=== PATIENT | female | born 1980 | race Caucasian/White ===

== ENCOUNTER 2020-06-20 09:34 | Emergency (ER) | payer BC, SELFPAY ==
[2020-06-20 09:36] VITALS: BP 95/67; PULSE 81; RESP 18; TEMP 37; O2SAT 100; BMI 24.5
--- NOTE | 2020-06-20 09:46 | HMH.EDDENT ---
ED Disposition Clinical Impression: Pain, dental Disposition: Home, Self-Care Condition on Discharge: Good Instructions: DI for Dental Pain Prescriptions: Penicillin V Potassium 500 mg PO QID #20 tab Prescription Printed Referrals: Tony Wills [Primary Care Provider] - - Critical Care Critical Care Time: No Attestation: On 06/20/20, the high probability of a clinically significant, sudden or life threatening deterioration of the following system(s) required my full and direct attention, intervention and personal management. The time I documented below is in addition to time spent performing reported procedures but includes the following listed in this critical care notation. Medical Decision Making - Medical Records Medical records reviewed: Yes: I reviewed the patient's medical records. - Marcio Inquiry Pt receiving controlled substance: No Orders (Tests/Meds): ED MEDICATIONS Generic Name Dose Route Start Last Admin Trade Name Freq PRN Reason Stop Dose Admin Ketorolac Tromethamine 60 mg 06/20/20 09:46 Toradol 60mg/2ml Vial IM 06/20/20 09:47 ONCE ONE Discontinued Medications Generic Name Dose Route Start Last Admin Trade Name Freq PRN Reason Stop Dose Admin Lidocaine HCl 15 ml 06/20/20 09:45 Lidocaine 2% Viscous Solution 15ml Udc PO 06/20/20 09:46 ONCE ONE Medical Decision Narrative: Patient with healthy-appearing extractions, no signs of infection. Will place empirically on antibiotics and given a tooth ball here. Discharged home with advised to follow-up as soon as possible with her dentist. Dental HPI - General Stated complaint: dry socket or infected Time Seen by Provider: 06/20/20 09:46 Mode of Arrival: Ambulatory Source of Information: Patient Limitations: No Limitations - History of Present Illness HPI Narrative: 39-year-old female who presents to the emergency department for evaluation of pain around tooth #3. She had tooth extractions approximately 8 days ago and has developed increased pain along the top of her gumline around tooth #3 for the last several days. No intraoral drainage or fevers. She has been keeping the areas clean. She is concerned about dry socket. No bleeding from the wounds. - Related Data Previous Rx's Medication Instructions Recorded Penicillin V Potassium 500 mg PO QID #20 tab 06/20/20 Allergies Allergy/AdvReac Type Severity Reaction Status Date / Time lamotrigine [From LAMICTAL] Allergy Unknown Unverified 10/03/17 15:04 [facility] History - Hepatitis A Screen Attestation statement:: This patient has been screened for Hepatitis A risk factors. I have reviewed the patient's past medical history: Yes (noncontributory) ROS Obtained: Yes All systems reviewed & no additional complaints Physical Exam - General General appearance: alert, in no apparent distress - Head Head exam: atraumatic, normocephalic, normal inspection - ENT ENT exam: Present: normal exam, mucous membranes moist, other (Recent tooth extractions around tooth #3 and 30. Bed of the extraction appear healthy with no active discharge or bleeding. No surrounding erythema or swelling.) - Neck Neck exam: Present: normal inspection, trachea midline. Absent: lymphadenopathy - Respiratory Respiratory exam: Present: normal lung sounds bilaterally. Absent: respiratory distress - Cardiovascular Cardiovascular exam: Present: regular rate, normal rhythm - Neurological Exam Neurological exam: Present: alert, oriented X3 - Skin Skin exam: Present: warm, dry
[2020-06-20 10:59] VITALS: BP 118/88; PULSE 78; RESP 19; TEMP 37.1; O2SAT 98
== END 2020-06-20 11:00 | disposition home or self-care (01) ==
PROVIDERS: Emergency Provider Emergency Medicine; PCP Pediatrics
DX: K04.7 Periapical abscess without sinus (principal)
CPT/HCPCS: 96372; 99281

== ENCOUNTER → 2023-06-02 08:43 | Outpatient (CLI) | payer BC, SELFPAY ==
[2023-06-02 08:55] LABS: Coronavirus 19, PCR Not Detected (NotDetected); Influenza A, PCR Not Detected (NotDetected); Influenza B, PCR Not Detected (NotDetected)
[2023-06-02 09:25] LABS: Basophils % 0.7 % (0.1-2.0); Eosinophils # 0.1 K/mm3 (0.0-0.4); Eosinophils % 2.9 % (0.1-12.0); Hematocrit 38.7 % (37.0-47.0); Hemoglobin 12.5 g/dL (12.2-16.2); Lymphocytes # 1.2 K/mm3 (0.7-4.5); Lymphocytes % 25.7 % (10-50); Mean Corpuscular HGB Conc 32.2 g/dL (31.8-35.4); Mean Corpuscular Hemoglobin 29.5 pg (27.0-31.2); Mean Corpuscular Volume 91.6 fl (81-99); Mean Platelet Volume 7.2 fl (7.4-10.4); Monocytes # 0.2 K/mm3 (0.1-1.0); Monocytes % 3.6 % (1.7-9.3); Neutrophils # 3.2 K/mm3 (1.8-7.8); Neutrophils % 67.1 % (37.0-80.0); Platelet Count 368 K/mm3 (142-424); Red Blood Count 4.23 M/mm3 (4.20-5.40); Red Cell Distribution Width 12.5 % (11.5-17.5); White Blood Count 4.8 K/mm3 (4.8-10.8)
[2023-06-02 10:09] LABS: Monoscreen (Rapid) Negative (Negative)
[2023-06-02 10:28] LABS: Alanine Aminotransferase 26 U/L (12-78); Albumin Level 4.5 g/dl (3.5-5.0); Albumin/Globulin Ratio 1.7 (1.1-1.8); Alkaline Phosphatase 40 U/L (38-126); Anion Gap 15.2 mEq/L (5-15); Aspartate Amino Transferase 41 U/L (14-36); Bilirubin,Total 0.3 mg/dl (0.2-1.3); Blood Urea Nitrogen 13 mg/dl (7-17); Calcium 9.4 mg/dl (8.4-10.2); Carbon Dioxide 23 mmol/L (22.0-30.0); Chloride 108 mmol/L (98-107); Estimated Glomerular Filt Rate 79 ml/min (>60); GFR (African American) 96 ML/MIN (>60); Globulin 2.7 g/dL (1.3-3.2); Glucose 79 mg/dl (74-100); Potassium 4.2 mmoL/L (3.5-5.1); Sodium 142 mmol/L (136-145); Total Protein,Serum 7.2 g/dl (6.3-8.2)
[2023-06-03 10:12] LABS: Cytomegalovirus (CMV) Ab, IgG <0.60 U/mL (0.00-0.59); Cytomegalovirus (CMV) Ab, IgM <30.0 AU/mL (0.0-29.9)
[2023-06-03 11:33] LABS: Lyme Ab CIA Negative (Negative)
[2023-06-05 14:41] LABS: EBV Ab VCA, IgG >600.0 U/mL (0.0-17.9); EBV Ab VCA, IgM <36.0 U/mL (0.0-35.9); EBV Nuclear Antigen Ab, IgG >600.0 U/mL (0.0-17.9)
== END ==
PROVIDERS: PCP Nurse Practitioner; Visit Provider Nurse Practitioner
DX: J06.9 Acute upper respiratory infection, unspecified (principal); R59.0 Localized enlarged lymph nodes
CPT/HCPCS: 36415; 80053; 85025; 86060; 86318; 86618; 86644; 86645; 86664; 86665; 87636

== ENCOUNTER → 2023-06-20 13:03 | Outpatient (CLI) | payer BC, SELFPAY ==
--- NOTE | 2023-06-20 13:03 | CT_ITS ---
FINAL REPORT CLINICAL HISTORY: thoracic and posterior cervical lymphadenopath FINDINGS: Axial CT images of the chest were obtained with contrast. Coronal reformatted images were also obtained. This study was performed with techniques to keep radiation doses as low as reasonably achievable, (ALARA). Individualized dose reduction techniques using automated exposure control or adjustment of mA and/or KV according to the patient's size were employed. There is no evidence of mediastinal or hilar mass or adenopathy.No axillary mass or adenopathy is identified. On lung window images, no pulmonary mass or dominant pulmonary nodule is identified. No localized pulmonary inflammatory process is identified. Limited images of the upper abdomen shows the gallbladder is surgically absent. There is mild pleural thickening. There are multiple calcified granulomas in the right lung. IMPRESSION: No mass or localized inflammatory process. Reviewed, Interpreted and Dictated by Aniceto Royal III, MD Transcribed by Deandra Evans Authenticated and [facility]
--- NOTE | 2023-06-20 13:03 | CT_ITS ---
FINAL REPORT TECHNIQUE: Thin section axial CT images were obtained through the neck after intravenous contrast administration. Coronal and sagittal reformats were also obtained. This study was performed with techniques to keep radiation doses as low as reasonably achievable (ALARA). Individualized dose reduction techniques using automated exposure control or adjustment of mA and/or kV according to the patient''s size were employed. CLINICAL HISTORY: thoracic and posterior cervical lymphadenopathy FINDINGS: The nasopharynx, oropharynx, hypopharynx and larynx are unremarkable. There is no mass or adenopathy. The thyroid gland is unremarkable. The visualized sinuses are clear. There is no acute osseous abnormality. There is mild mucosal thickening of the left maxillary sinus. IMPRESSION: No neck mass or adenopathy. Reviewed, Interpreted and Dictated by Aniceto Royal III, MD Transcribed by Deandra Evans Authenticated and [facility]
== END ==
PROVIDERS: PCP Nurse Practitioner; Visit Provider Nurse Practitioner
DX: R59.0 Localized enlarged lymph nodes (principal)
CPT/HCPCS: 70491; 71260; Q9967

== ENCOUNTER → 2023-07-04 09:45 | Outpatient (CLI) | payer BC, SELFPAY ==
[2023-07-04 19:44] LABS: Basophils % 0.7 % (0.1-2.0); Eosinophils # 0.1 K/mm3 (0.0-0.4); Eosinophils % 2.1 % (0.1-12.0); Hematocrit 44.3 % (37.0-47.0); Hemoglobin 14.1 g/dL (12.2-16.2); Lymphocytes # 1.5 K/mm3 (0.7-4.5); Lymphocytes % 22.9 % (10-50); Mean Corpuscular HGB Conc 31.9 g/dL (31.8-35.4); Mean Corpuscular Hemoglobin 29.5 pg (27.0-31.2); Mean Corpuscular Volume 92.4 fl (81-99); Mean Platelet Volume 8.4 fl (7.4-10.4); Monocytes # 0.2 K/mm3 (0.1-1.0); Monocytes % 3.4 % (1.7-9.3); Neutrophils # 4.6 K/mm3 (1.8-7.8); Neutrophils % 70.9 % (37.0-80.0); Platelet Count 355 K/mm3 (142-424); Red Blood Count 4.79 M/mm3 (4.20-5.40); Red Cell Distribution Width 12.2 % (11.5-17.5); White Blood Count 6.5 K/mm3 (4.8-10.8)
[2023-07-04 20:12] LABS: 25-OH Vitamin D, Total 69.3 ng/mL (30-100)
[2023-07-04 20:27] LABS: Thyroid Stimulating Hormone 0.69 uIU/mL (0.465-4.68)
[2023-07-04 21:16] LABS: Vitamin B12 > 1000 pg/mL (239-931)
[2023-07-06 12:35] LABS: Anti-Centromere B Antibodies <0.2 AI (0.0-0.9); Anti-DNA (DS) Ab Qn <1 IU/mL (0-9); Anti-Jo-1 <0.2 AI (0.0-0.9); Anti-Smith Antibody <0.2 AI (0.0-0.9); Antichromatin Antibodies <0.2 AI (0.0-0.9); Antiscleroderma-70 Antibodies <0.2 AI (0.0-0.9); RNP Antibodies <0.2 AI (0.0-0.9); Sjogren's Anti-SS-A <0.2 AI (0.0-0.9); Sjogren's Anti-SS-B <0.2 AI (0.0-0.9)
== END ==
PROVIDERS: PCP Nurse Practitioner; Visit Provider Nurse Practitioner
DX: R07.9 Chest pain, unspecified (principal); R00.2 Palpitations; J06.9 Acute upper respiratory infection, unspecified; R53.83 Other fatigue; R79.89 Other specified abnormal findings of blood chemistry; Z79.899 Other long term (current) drug therapy
CPT/HCPCS: 82306; 82607; 84443; 85025; 86225; 86235; 93225

== ENCOUNTER → 2023-07-04 11:10 | Outpatient (CLI) | payer BC, SELFPAY | PROVIDERS: PCP Nurse Practitioner; Visit Provider Nurse Practitioner | DX: R53.83 Other fatigue (principal) ==

== ENCOUNTER → 2023-08-08 12:04 | Outpatient (CLI) | payer BC, SELFPAY ==
--- NOTE | 2023-08-08 12:16 | XR_ITS ---
FINAL REPORT CLINICAL HISTORY: hemoptysis FINDINGS: Two views of the chest were obtained. The heart size and pulmonary vascularity are within normal limits. The mediastinum is normal. No acute pulmonary abnormality is identified. There is no pneumothorax. The bony thorax is intact. IMPRESSION: No active cardiopulmonary disease. Reviewed, Interpreted and Dictated by Aniceto Royal III, MD Transcribed by Deandra Evans Authenticated and [facility]
[2023-08-08 12:29] LABS: Basophils # 0.1 K/mm3 (0-0.2); Basophils % 0.7 % (0.1-2.0); Eosinophils # 0.1 K/mm3 (0.0-0.4); Eosinophils % 0.9 % (0.1-12.0); Hematocrit 44.3 % (37.0-47.0); Hemoglobin 15.2 g/dL (12.2-16.2); Lymphocytes # 1.8 K/mm3 (0.7-4.5); Lymphocytes % 22.7 % (10-50); Mean Corpuscular HGB Conc 34.3 g/dL (31.8-35.4); Mean Corpuscular Hemoglobin 31.2 pg (27.0-31.2); Mean Corpuscular Volume 90.9 fl (81-99); Mean Platelet Volume 7.1 fl (7.4-10.4); Monocytes # 0.3 K/mm3 (0.1-1.0); Monocytes % 3.3 % (1.7-9.3); Neutrophils # 5.9 K/mm3 (1.8-7.8); Neutrophils % 72.4 % (37.0-80.0); Platelet Count 308 K/mm3 (142-424); Red Blood Count 4.88 M/mm3 (4.20-5.40); Red Cell Distribution Width 12.1 % (11.5-17.5); White Blood Count 8.1 K/mm3 (4.8-10.8)
== END ==
PROVIDERS: PCP Nurse Practitioner; Visit Provider Nurse Practitioner
DX: R04.2 Hemoptysis (principal)
CPT/HCPCS: 36415; 71046; 85025

== ENCOUNTER 2024-05-28 10:06 | Outpatient (CLI) | payer BC, SELFPAY ==
[2024-05-28 12:47] LABS: HCG,Quantitative 14883 mIU/ml (0-5.42)
[2024-05-29 12:43] LABS: Progesterone 13.5 ng/mL (.)
== END 2024-05-28 23:59 | disposition home or self-care (01) ==
LOC: LAB 10:06
PROVIDERS: PCP Nurse Practitioner; Visit Provider Obstetrics & Gynecology
DX: N92.6 Irregular menstruation, unspecified (principal)
CPT/HCPCS: 36415; 84144; 84702

== ENCOUNTER 2024-06-14 11:02 | Outpatient (CLI) | payer BC, SELFPAY ==
[2024-06-14 13:04] LABS: HCG,Quantitative 41862 mIU/ml (0-5.42)
== END 2024-06-14 23:59 | disposition home or self-care (01) ==
LOC: LAB 11:02
PROVIDERS: PCP Nurse Practitioner; Visit Provider Obstetrics & Gynecology
DX: Z34.90 Encounter for supervision of normal pregnancy, unspecified, unspecified trimester (principal)
CPT/HCPCS: 36415; 84702; 86850; 87086

== ENCOUNTER 2024-06-19 08:04 | Outpatient (CLI) | payer BC, SELFPAY ==
--- NOTE | 2024-06-19 08:04 | US_ITS ---
PROCEDURE: US OB <= 14 WEEKS FETUS CLINICAL INDICATION: Check viability and dates COMPARISON: No exams were available for comparison FINDINGS: Transvaginal sonographic images of the pelvis were obtained. From her last menstrual period she is 8weeks 4days. An intrauterine gestational sac is present and a fetus is not seen. The gestational sac correlates to a gestational age of 7weeks 1day. heart tones are not seen. Yolk sac is noted. The yolk sac measures 4.9mm. There appears to be a small area of subchorionic hemorrhage. The right ovary is seen and appears normal. There appears to be 2 areas within the right ovary that look like corpus lutea. They measure 1.75 cm and 1.8 cm respectively. They have circumferential flow. The left ovary is seen and appears normal. There is no fluid in the cul-de-sac. IMPRESSION: 1. A gestational sac is seen within the uterine cavity but no fetus is seen. 2. The gestational sac measures 7 weeks 1 day. 3. A yolk sac is seen and measures 4.9 mm. There is a small subchorionic hemorrhage. 4. Left ovary appears normal. 5. Right ovary has what appears to be 2 corpus lutea with circumferential flow. 6. Suggest follow-up ultrasound within 1 week, serial quantitative beta HCGs. Likely missed . Dictated by: Michael Ayala MD 06/19/2024 09:30 Michael Ayala MD in [place] 06/19/2024 09:30
== END 2024-06-19 23:59 | disposition home or self-care (01) ==
LOC: RAD 08:04
PROVIDERS: PCP Obstetrics & Gynecology; Visit Provider Obstetrics & Gynecology
DX: Z36.87 Encounter for antenatal screening for uncertain dates (principal)
CPT/HCPCS: 76801

== ENCOUNTER 2024-06-24 14:39 | Outpatient (CLI) | payer BC, SELFPAY ==
--- NOTE | 2024-06-24 14:39 | US_ITS ---
PROCEDURE: US OB <= 14 WEEKS FETUS CLINICAL INDICATION: Check Viability/ possible threatened COMPARISON: US US OB <= 14 WEEKS FETUS from 06/19/2024 FINDINGS: Transvaginal sonographic images of the pelvis were obtained. From her last menstrual period she is 9weeks 2days. The uterus is retroverted and the gestational sac seems to be collapsing. There are internal echoes within the gestational sac. An intrauterine gestational sac is present with a pole with a crown-rump length of 0.5cm A small pole is seen. heart tones are absent. Yolk sac is noted. The yolk sac measures 3.8mm. The right ovary is seen. Within the right ovary again are seen two corpus lutea. The interior of both have a ground-glass appearance. They both have a ring of fire. An ectopic cannot be ruled out. The left ovary is seen and appears normal. There is a small echogenic focus within the left ovary. There is no fluid in the cul-de-sac. IMPRESSION: 1. A gestational sac is seen within the uterine cavity. A yolk sac and small nonviable fetus are also seen. 2. There is no heart rate activity. 3. The left ovary is seen and appears normal. The right ovary has 2 areas that appear to be corpus lutea. There is a ground glass appearance within each. There is also a ring of fire around each. 4. Suggest serial beta HCGs to rule out an ectopic here. 5. No fluid in the cul-de-sac. Dictated by: Michael Ayala MD 06/25/2024 07:06 Michael Ayala MD in OV 06/25/2024 07:06
[2024-06-24 16:39] LABS: HCG,Quantitative 66787 mIU/ml (0-5.42)
== END 2024-06-24 23:59 | disposition home or self-care (01) ==
LOC: RAD 14:39
PROVIDERS: Obstetrics & Gynecology; PCP Nurse Practitioner; Visit Provider Nurse Practitioner Obstetrics & Gynecology
DX: O02.0 Blighted ovum and nonhydatidiform mole (principal)
CPT/HCPCS: 36415; 76801; 84702

== ENCOUNTER 2024-06-25 10:57 | Outpatient (CLI) | payer BC, SELFPAY ==
[2024-06-25 11:22] LABS: Basophils % 0.6 % (0.1-2.0); Eosinophils # 0.1 K/mm3 (0.0-0.4); Eosinophils % 1.4 % (0.1-12.0); Hematocrit 42.9 % (37.0-47.0); Hemoglobin 13.8 g/dL (12.2-16.2); Lymphocytes # 1.5 K/mm3 (0.7-4.5); Lymphocytes % 21.3 % (10-50); Mean Corpuscular HGB Conc 32.1 g/dL (31.8-35.4); Mean Corpuscular Hemoglobin 30.2 pg (27.0-31.2); Mean Corpuscular Volume 93.9 fl (81-99); Mean Platelet Volume 7.7 fl (7.4-10.4); Monocytes # 0.3 K/mm3 (0.1-1.0); Monocytes % 4.6 % (1.7-9.3); Neutrophils # 5.2 K/mm3 (1.8-7.8); Neutrophils % 72.1 % (37.0-80.0); Platelet Count 308 K/mm3 (142-424); Red Blood Count 4.57 M/mm3 (4.20-5.40); Red Cell Distribution Width 13.1 % (11.5-17.5); White Blood Count 7.3 K/mm3 (4.8-10.8)
[2024-06-25 12:42] LABS: Albumin Level 4.7 g/dl (3.5-5.0); Chloride 107 mmol/L (98-107); Sodium 138 mmol/L (136-145)
[2024-06-25 12:43] LABS: Potassium 3.8 mmoL/L (3.5-5.1)
[2024-06-25 12:45] LABS: Alanine Aminotransferase 27 U/L (12-78); Albumin/Globulin Ratio 1.6 (1.1-1.8); Alkaline Phosphatase 50 U/L (38-126); Anion Gap 13.8 mEq/L (5-15); Aspartate Amino Transferase 38 U/L (14-36); Bilirubin,Total 0.6 mg/dl (0.2-1.3); Blood Urea Nitrogen 9 mg/dl (7-17); Carbon Dioxide 21 mmol/L (22.0-30.0); Estimated Glomerular Filt Rate 92 ml/min (>60); GFR (African American) 111 ML/MIN (>60); Globulin 2.9 g/dL (1.3-3.2); Total Protein,Serum 7.6 g/dl (6.3-8.2)
[2024-06-25 12:46] LABS: Calcium 9.8 mg/dl (8.4-10.2); Glucose 71 mg/dl (74-100)
== END 2024-06-25 23:59 | disposition home or self-care (01) ==
LOC: LAB 10:58
PROVIDERS: PCP Nurse Practitioner; Visit Provider Obstetrics & Gynecology
DX: O02.1 Missed abortion (principal)
CPT/HCPCS: 36415; 80053; 85025; 86850

== ENCOUNTER 2024-06-26 12:00 | Day surgery (SDC) | payer BC, SELFPAY ==
[2024-06-26] VITALS (9 sets, daily range): BP systolic 103–122; BP diastolic 41–80; PULSE 68–105; RESP 16–18; TEMP 36.2–36.6; O2SAT 100; BMI 22.3
[2024-06-26] MEDS: LACTATED RINGERS 1000ML 1,000 ML 25 ML IV (12:55)
[2024-06-26] MEDS: ACETAMINOPHEN 500MG TAB 1000 MG PO (12:56)
[2024-06-26] MEDS: DOXYCYCLINE HYCL 100 MG TABLET 200 MG PO (12:56)
[2024-06-26] MEDS: LIDOCAINE 1% 20ML MDV 40 ML (14:35)
--- NOTE | 2024-06-26 14:47 | P.PNANES_ITS ---
[facility] Disclaimer: The information contained in this section may have been updated after the patient was seen, as this information can be updated by other users. Medical History (Updated 06/26/24 @ 12:44 by Mae Nobles RN) History of COVID-19 Seizure Pancreatitis Hemoptysis MDD (major depressive disorder), recurrent episode, moderate Persistent moderate somatic symptom disorder Generalized anxiety disorder with panic attacks Chronic post-traumatic stress disorder (PTSD) Anxiety Palpitation Chest pain Fatigue Anterior cervical lymphadenopathy Lymphadenopathy, thoracic Posterior cervical lymphadenopathy Surgical History H/O hernia repair History of cholecystectomy Family History (Updated 06/26/24 @ 12:44 by Mae Nobles RN) Other Ovarian cancer Social History (Updated 06/26/24 @ 12:45 by Mae Nobles RN) Smoking Status: Former smoker alcohol intake: never substance use type: opiates (Michael takes OxyCodone 325 mg up to 3 times per day as needed for the pain in her back, shoulder, and abdominal area. She is regulated by the pain doctor since July 2022.) current occupational status: unemployed Travel in the last 8 weeks: None number of children: 1 [facility] Anesthesia Checklist Patient Identification Patient Identification: Arm Band Structural Data Admitted From: Home Planned Operative Procedure/s: D&C with [place] Suction, Diagnostic Laparoscopy Consent for Planned Operative Procedure(s) Verified: Yes Verified Documents: Surgical Consent and History and Physical NPO Status Verified Time NPO: 00:00 Additional verifications Anesthesia Reactions: No Hx Blood Transfusions: No Blood Transfusion Reaction: No Airway Assessment Mallampati Score:: Class I C-Spine Mobility Assessed: Yes TMJ Mobility Assessed: Yes Dentition: Good Dentition Neurological Assessment Level of Consciousness: Awake, Alert and Appropriate Anesthesia Plan Anesthesia Risk discussed: Yes Anesthesia Plan: Verified ASA Class: II Anesthesia Type: General
--- NOTE | 2024-06-26 15:11 | P.PNANES_ITS ---
[facility] Anesthesia Record Part I Anesthesia Record I Intake, IV Amount: 900 Hydration: Adequate Estimated blood loss (mL): 5 Urine output (mL): 0 Blood Products used (#): none Blood Pressure: 111/71 SaO2: 100 Pulse Rate: 76 Airway Patency: Patent Respiratory Rate: 16 Temperature: 97.9 F Patient is:: Drowsy and Stable Stable to PACU at:: 15:10
--- NOTE | 2024-06-26 15:20 | P.OP_ITS ---
Date of procedure: 06/26/24 Pre-op Diagnosis:: 1. 6 weeks spontaneous 2. Desires surgical management 3. Rh+ 4. Right ovarian cyst with a ring of fire appearance Post-op Diagnosis:: 1. 6 weeks spontaneous 2. Desires surgical management 3. Rh+ 4. Right ovarian cyst with a ring of fire appearance Procedure performed:: 1. Dilation and suction curettage 2. Diagnostic laparoscopy Surgeon:: Suly Kinney DO STRUCTURES TECHNICIAN:: Kuldeep Sosa Anesthesia: GETA Estimated blood loss (mL): 10 Clinical Note:: Michael Reeves is a 43yo who presented with several US that demonstrated a collapsing yolk sac without cardiac activity or a viable pole. Her BHCG was not rising appropriately. Beta-hCG 05/28/24 was 14,883, this cherie to 41,862 on 06/14/2024, and this was an inappropriate less than optimal rise. And then cherie to 66,787 on 06/24/2024 again not an appropriate rise over the course of 10 days. Doubling time was calculated to be approximately a 2-day change of 12% and a doubling time of almost 13 days. Ultrasound was reviewed which also displayed a right ovary with 2 cystic areas measuring 1.75 and 1.8 cm respectively. In the second ultrasound these were noted again but quoted to have a ring of fire . Shared decision making was used and we elected to proceed with a diagnostic lap at the time of suction D&C Expectant, medical, and surgical management were explained to the patient and she elected to undergo surgical management. She was consented for suction D&C. Risk, benefits, and alternatives were reviewed. Risk including but not limited to uterine perforation, bleeding, and infection were discussed. Medications: Doxycycline 200 mg Operative findings:: -Normal-appearing external genitalia. Closed cervical os without bleeding. There was grade 3 apical procidentia. No appreciable anterior posterior defects noted with gentle traction the cervix was easily movable to the outside of the vaginal introitus -Laparoscopic anatomy reviewed and appeared normal. Enlarged boggy uterus. Small adhesions of the left bowel to the left pelvic sidewall. These adhesions were nonobstructive to ovarian access. No ovarian cyst noted. Operative note:: The patient was taken back to the operating room where anesthesia was administered. SCDs were placed for thromboembolism prophylaxis and found to be working. She was placed in the dorsolithotomy position with yellowfin stirrups and sterilely prepped and draped with CHG in the usual fashion. In and out catheter was used to drain her bladder. Weighted speculum and a right angle retractor was used to visualize the cervix. A single-tooth tenaculum applied to the anterior lip cervix. Vlila dilators were used to dilate the cervix to accommodate a #7 rigid suction curette. The suction curette was inserted to the fundus, hooked to suction, and twisted in a clockwise fashion until the curette was removed. Products noted in the tubing system. This process was repeated until all uterine contents were removed. Following this careful attention was given to the bleeding from the cervical os and was noted to be absent. An acorn uterine manipulator was placed. 10mL of 1% Lidocaine was injected infraumbilically and a scalpel was used to make a 5 mm infraumbilical incision with the assistance from a hemostat. The skin was tented and Optiview blunt trocar was introduced into the abdomen in the usual fashion. CO2 gas was connected with an initial pressure of 8 mmHg noted. Pneumoperitoneum was created to a pressure of 15 mmHg. The laparoscopic camera was inserted and a quick survey of the abdomen revealed grossly normal anatomy. The uterus appeared to be anteverted and boggy. The patient was placed in Trendelenburg. 10mLs of local anesthetic was injected and a 5mm incision was then made in the left lower quadrant with careful attention to avoid the rectus muscles and vasculature and under direct laparoscopic visualization a blunt trocar was introduced into the abdominal cavity. The fallopian tubes were identified on the cornu of the uterus and followed out to the ovaries which revealed grossly appearing anatomy. A grasper was used to elevate the left fallopian tube, ovary and fallopian tube appeared normal. Images were obtained. Attention was then turned to the right fallopian tube, an atraumatic grasper was used to elevate the fimbriated ends of fallopian tube and the ovary was inspected. No significant ovarian cyst noted. Images were obtained. Decision was made to conclude the procedure. Pneumoperitoneum reduced, and all ports removed. The 2 abdominal incisions were closed with a single simple interrupted suture using 4-0 Monocryl. Dermabond was applied to each skin incision. The [facility] [place] uterine manipulator was removed. All counts were correct x2, per nursing. The patient was extubated, stable, and transferred to the PACU. She will be discharged after meeting all DC criteria to include voiding, ambulating and tolerating PO independently. Condition: stable Disposition: PACU Specimens:: Products of conception Complications:: None
--- NOTE | 2024-06-27 09:48 | P.PNANES_ITS ---
[facility] Anesthesia Record Part II Anesthesia Record Part II Discharge Time: 15:40 Destination: [facility] PACU nurse assessment reviewed?: Yes Patient Condition:: Good Anesthesia Complications:: None Swallowing reflex intact?: Yes Airway Patency: Patent Cyanosis?: No Blood Pressure: 106/73 SaO2: 100 Respiratory Rate: 18 Pulse Rate: 83 Temperature: 97.1 F Mental Status: Alert & Oriented Pain level:: 6 Nausea and/or vomitting:: None Intake, IV Amount: 1,000 Hydration: Adequate
[2024-06-27 09:49] VITALS: BP 106/73; PULSE 83; RESP 18; TEMP 36.2; O2SAT 100
== END 2024-06-26 16:11 | disposition home or self-care (01) ==
PROVIDERS: PCP Nurse Practitioner; Visit Provider Obstetrics & Gynecology
PROC: (CPT 59820; principal; 2024-06-26 13:45)
DX: O03.9 Complete or unspecified spontaneous abortion without complication (principal); N83.11 Corpus luteum cyst of right ovary
CPT/HCPCS: 59820; 49320; J3490; J1100; J1885; J2250; J2405; J3010; J7120

== ENCOUNTER 2024-10-03 14:45 | Emergency (ER) | payer BC, SELFPAY ==
[2024-10-03 14:46] VITALS: BP 136/89; PULSE 88; RESP 18; TEMP 36.6; O2SAT 100; BMI 24.1
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
--- NOTE | 2024-10-03 15:59 | US_ITS ---
PROCEDURE INFORMATION: Exam: US , Transvaginal Exam date and time: 10/03/2024 3:59 PM Age: 43 years old Clinical indication: complicated by abdominal or pelvic pain; Lower; First trimester (<14 weeks 0 days); Gestational age or lmp: 5w4d; ; Additional info: Vaginal bleeding in early LABS AND CLINICAL REPORTS: Last menstrual period start date: 08/26/2024 Gestational age (Established): 5 w 3 d Estimated due date (Established): 06/02/2025 TECHNIQUE: Imaging protocol: Real-time transvaginal obstetrical ultrasound of the maternal pelvis with image documentation. Transvaginal imaging was used for better evaluation of the fetus, adnexa, and/or cervix. COMPARISON: US OB <= 14 WEEKS FETUS 06/24/2024 2:40 PM FINDINGS: Gestation: No intrauterine pole, gestational or yolk sac identified. MATERNAL: Uterus: Uterus measures 6.63 cm x 4.95 cm x 3.99 cm. Right ovary/adnexa: Right ovary measures 3.91 cm x 3.38 cm x 3.01 cm. Right ovarian volume is 20.83 mL. Left ovary/adnexa: Left ovary measures 2.07 cm x 1.1 cm x 0.92 cm. Left ovarian volume is 1.1 mL. IMPRESSION: No intrauterine pole, gestational or yolk sac identified. Gestation possibly too early to visualized. Beta HCG correlation recommended.
--- NOTE | 2024-10-03 16:05 | PC.NURSE ---
PT TO US
[2024-10-03 16:20] LABS: Hematocrit 37.9 % (37.0-47.0); Mean Corpuscular Volume 87.7 fl (81-99); Red Blood Count 4.32 M/mm3 (4.20-5.40); White Blood Count 6.5 K/mm3 (4.8-10.8)
[2024-10-03 16:21] LABS: Basophils % 1.1 % (0.1-2.0); Eosinophils % 1.2 % (0.1-12.0); Lymphocytes # 1.6 K/mm3 (0.7-4.5); Lymphocytes % 24.8 % (10-50); Mean Corpuscular HGB Conc 34.3 g/dL (31.8-35.4); Mean Corpuscular Hemoglobin 30.1 pg (27.0-31.2); Mean Platelet Volume 9.1 fl (7.4-10.4); Monocytes # 0.4 K/mm3 (0.1-1.0); Monocytes % 5.5 % (1.7-9.3); Neutrophils # 4.4 K/mm3 (1.8-7.8); Neutrophils % 66.9 % (37.0-80.0); Platelet Count 343 K/mm3 (142-424); Red Cell Distribution Width 12.1 % (11.5-17.5)
[2024-10-03 16:22] LABS: Basophils # 0.1 K/mm3 (0-0.2); Eosinophils # 0.1 K/mm3 (0.0-0.4)
[2024-10-03 16:34] LABS: Alanine Aminotransferase 20 U/L (12-78); Albumin Level 4.7 g/dl (3.5-5.0); Albumin/Globulin Ratio 1.7 (1.1-1.8); Alkaline Phosphatase 55 U/L (38-126); Anion Gap 11.8 mEq/L (5-15); Aspartate Amino Transferase 39 U/L (14-36); Bilirubin,Total 0.5 mg/dl (0.2-1.3); Blood Urea Nitrogen 17 mg/dl (7-17); Calcium 9.9 mg/dl (8.4-10.2); Carbon Dioxide 26 mmol/L (22.0-30.0); Chloride 106 mmol/L (98-107); Estimated Glomerular Filt Rate 54 ml/min (>60); GFR (African American) 66 ML/MIN (>60); Globulin 2.8 g/dL (1.3-3.2); Glucose 94 mg/dl (74-100); Lipase 380 U/L (23-300); Potassium 3.8 mmoL/L (3.5-5.1); Sodium 140 mmol/L (136-145); Total Protein,Serum 7.5 g/dl (6.3-8.2)
[2024-10-03 16:40] LABS: INR 0.92 (0.9-1.1); Prothrombin Time 10.4 seconds (10.1-12.5)
[2024-10-03 16:53] LABS: HCG,Quantitative < 2 mIU/ml (0-5.42)
[2024-10-03 17:15] LABS: Microscopic, Urine URINE MICROSCOPIC (MICROSCOPIC)
[2024-10-03 17:47] VITALS: BP 114/78; PULSE 66; RESP 16; TEMP 36.2; O2SAT 100
[2024-10-03 17:50] LABS: Appearance,Urine CLEAR (Clear); Bilirubin,Urine Negative (Negative); Blood, Urine 3+ (Negative); Color,Urine YELLOW (Yellow); Glucose,Urine (UA) Negative (Negative); Ketones,Urine Negative (Negative); Leukocyte Esterase,Urine Negative (Negative); Nitrate,Urine Negative (Negative); PH,Urine 7.5 (5.0-8.5); Protein,Urine Negative (Negative); Specific Gravity, Urine 1.015 (1.005-1.030); Urobilinogen,Urine 0.2 EU/dl (0.2)
[2024-10-03 18:23] LABS: RBC,Urine TNTC #/hpf (0-3); Squamous Epithelial Cell,Urine 20-50 #/hpf (0-5); WBC,Urine TNTC #/hpf (0-3)
[2024-10-03 18:24] LABS: Bacteria,Urine 3+ /lpf
[2024-10-03 18:59] LABS: HIV Combo NEGATIVE (Negative)
[2024-10-05 08:14] LABS: HCV Ab Non Reactive (Non Reactive)
--- NOTE | 2024-10-06 17:33 | PC.NURSE ---
spoke with Pt and updated about new antibiotic scrip for urine culture results
--- NOTE | 2024-10-09 16:28 | PC.NURSE ---
urine culture discussed with Dr. Alfredo, pt dc with macrobid, ntd
== END 2024-10-03 17:48 | disposition home or self-care (01) ==
PROVIDERS: Physician Assistant; Emergency Provider Emergency Medicine; PCP Nurse Practitioner
DX: N94.6 Dysmenorrhea, unspecified (principal); L03.011 Cellulitis of right finger; R10.30 Lower abdominal pain, unspecified; N93.9 Abnormal uterine and vaginal bleeding, unspecified
CPT/HCPCS: 76817; 80053; 81001; 83690; 84702; 85025; 85610; 86803; 87086; 87088; 87186; 87389; 99283